=== PATIENT | female | born 1990 | race American Indian/Alaskan Native ===

== ENCOUNTER 2020-05-23 10:13 | Emergency (ER) | payer BC ==
[2020-05-23 10:29] VITALS: BP 119/79
--- NOTE | 2020-05-23 11:18 | Emergency Department Report ---
Minor Respiratory - HPI Chief Complaint: Upper Respiratory Infection Stated Complaint: SORE THROAT/CONGESTION/BODYACHE Time Seen by Provider: 05/23/20 11:13 Duration: 1 Day Severity: mild Minor Respiratory: Yes Sore Throat, Yes Cough, Yes Sick Contacts (both children), No Hemoptysis, No Chest Pain, No Shortness of Breath, No Fever Other History: 29 y/o female comes in for sore throat, cough and bodyaches. Patient reports that when the change of season she gets sick. She denies any fever or chill no nausea or vomiting no headache or abdominal pain. ED Review of Systems ROS: Stated complaint: SORE THROAT/CONGESTION/BODYACHE Other details as noted in HPI ED Past Medical Hx - Past Medical History Previous Medical History?: No - Surgical History Additional Surgical History: C SECTION - Social History Smoking Status: Never Smoker Substance Use Type: None Minor Respiratory Exam - Exam General: Vital signs noted. No distress. Alert and acting appropriately. Neurologic: Alert and oriented, no deficits. Musculoskeletal: Unremarkable. ED Course Vital Signs 05/23/20 10:27 Temperature 98.4 F Pulse Rate 90 Respiratory 20 Rate Blood Pressure 119/79 O2 Sat by Pulse 98 Oximetry ED Medical Decision Making - Medical Decision Making 29 y/o female comes in for sore throat, cough and bodyaches. Patient reports that when the change of season she gets sick. She denies any fever or chill no nausea or vomiting no headache or abdominal pain. Recommend over the counter Zyrtec or claritin Tylenol or Ibuprofen. Throat lozenge and increase fluids. Critical care attestation.: If time is entered above; I have spent that time in minutes in the direct care of this critically ill patient, excluding procedure time. ED Disposition Clinical Impression: Allergic rhinitis Disposition: DC-01 TO HOME OR SELFCARE Is pt being admited?: No Does the pt Need Aspirin: No Condition: Stable Instructions: Allergic Rhinitis (ED) Additional Instructions: Recommend over the counter Zyrtec or claritin Tylenol or Ibuprofen. Throat lozenge and increase fluids. Referrals: PRIMARY CARE,MD [Primary Care Provider] - 3-5 Days Your, Primary Care Provider [Other] - 3-5 Days Forms: Work/School Release Form(ED)
== END 2020-05-23 11:49 | disposition home or self-care (01) ==
LOC: ED 10:13
DX: J30.9 Allergic rhinitis, unspecified (principal); Z98.890 Other specified postprocedural states
CPT/HCPCS: 99282